=== PATIENT | male | born 1945 | race Caucasian/White ===

== ENCOUNTER 2018-03-23 15:23 | Emergency (ER) | payer MEDICARE, MEDICAID, SELFPAY ==
[2018-03-23 15:25] VITALS: BP 104/50; PULSE 61; RESP 17; TEMP 37; O2SAT 97; BMI 29.7
--- NOTE | 2018-03-23 16:06 | MRI_ITS ---
STUDY: MRI CERVICAL SPINE WITHOUT CONTRAST REASON FOR EXAM: Male, 73 years old. Neck pain TECHNIQUE: Standardized fat and water weighted pulse sequences were obtained in the sagittal and axial planes. COMPARISON: None FINDINGS: Normal foramen magnum and brainstem-cervical cord junction. Normal craniovertebral junction. Normal anterior atlantoaxial articulation. Normal odontoid process. Decreased cervical lordosis. Normal vertebral bodies and posterior osseous elements. C2-3: Normal endplates. Normal disc height, signal and morphology. Normal central canal and intervertebral neural foramina. C3-4: Normal endplates. Normal disc height, signal and morphology. Normal central canal and intervertebral neural foramina. C4-5: Narrowed disc space and mild endplate spurring. Minor bulging disc osteophyte complex. Mild narrowing the central canal. Moderate bilateral neuroforaminal stenosis secondary to bony hypertrophy C5-6: Narrowed disc space and endplate spurring. Minor bulging disc osteophyte complex. Normal central canal. Moderate left neuroforaminal stenosis and more severe narrowing on the right.. C6-7: Narrowed disc space and endplate spurring. Tiny left paracentral disc protrusion. Small left foraminal disc/osteophyte protrusion.. Normal central canal. Severe left neural foraminal stenosis due to disc and bony hypertrophy C7-T1: Normal endplates. Normal disc height, signal and morphology. Normal central canal and intervertebral neural foramina. Normal cervical cord. Normal visualized soft tissue structures. MRI/Spine Cervical (Routine) IMPRESSION: No evidence for acute fracture or subluxation. Moderate spondylosis and bilateral stenosis at C4-5, C5-6 and C6-7 secondary to disc disease and bony hypertrophy. Electronically Signed: Delon Greer MD at 20:35 EDT , Service support ,
[2018-03-23] MEDS: Morphine 4 MG/ML Syringe IV ×3 (16:36→23:52)
[2018-03-23] MEDS: Ondansetron 4 MG/2 ML Vial IV (16:36)
--- NOTE | 2018-03-23 16:41 | ED.VISSUMM ---
- ER Visit Summary Date of Service: 03/23/18 Chief Complaint: Back pain History of Present Illness: The patient is a [address] Thomas and established with Dr. Cisneros today. He reports that he was [facility] with [facility] They do not know the source of his cancer. He saw Dr. Guzman for the first time today. He had blood work drawn and the CAT scan was reviewed. The patient was sent here for MRI and ultrasound-guided biopsy. Patient reports that his back pain has been gradually increasing over the past year. To constant aching pain that is sharp with standing up or walking. It is 10 out of 10 at worst and 2 out of 10 currently after Percocet. He denies any numbness, tingling, or weakness. He does report that it radiates to both legs at times and occasionally just to the anterior right thigh. He denies any fecal incontinence. He does report that he has to bear down to urinate. No groin numbness. Physical Examination: Vitals: Stable. Afebrile. General: A&O x 3. NAD. Cardiovascular exam: Regular rate and rhythm, no murmur, rub or gallop. Respiratory exam: Clear to auscultation bilaterally. No wheezes or stridor. Abdominal exam: Soft, nontender, nondistended, normal bowel sounds. No peritoneal signs. Back: No vertebral tenderness. Negative straight leg bilaterally. 5/5 DF, PF, EHL bilaterally. Normal sensation to light touch throughout. Extremity: No clubbing, cyanosis, or edema. Test Results: CBC is remarkable for segment neutrophils of 82 and lymphs lites of 11. Chem-7 is remarkable for a BUN of 33. Clinical Impression(s) from Imaging Studies Cervical Spine MRI 03/23/18 16:06 IMPRESSION: No evidence for acute fracture or subluxation. Moderate spondylosis and bilateral stenosis at C4-5, C5-6 and C6-7 secondary to disc disease and bony hypertrophy. Electronically Signed: Delon Greer MD at 20:35 EDT , Service support , ADDENDUM: 03/23/182051 Lumbar Spine MRI 03/23/18 16:06 IMPRESSION: No evidence for acute fracture. Multilevel spinal stenosis secondary to disc disease and bony hypertrophy exaggerated by shortened pedicles. Diffuse bone metastasis with sclerotic appearance likely due to primary prostate tumor with aortocaval adenopathy and right iliac adenopathy Electronically Signed: Delon Greer MD at 20:53 EDT , Service support , Thoracic Spine MRI 03/23/18 16:06 IMPRESSION: Scoliosis and degenerative changes.. No evidence for acute fracture Mottled appearance to bone marrow of the dorsal spine and sternum of indeterminate etiology although metastatic disease may be considered. Limited repeat scan with contrast would be helpful for further evaluation if indicated Electronically Signed: Delon Greer MD at 20:44 EDT , Service support , Emergency Department Course and Treatment: Patient was given a dose of morphine and Zofran IV. He was given oxycodone p.o. Treatment Plan: The patient was discussed with Dr. Enamorado. He will be discharged with instructions to follow-up with Dr. Cisneros tomorrow to start hormone therapy. He is given prescription for a fentanyl patch. Instructed to use oxycodone for breakthrough pain. Return to the emergency department for any worsening symptoms. Disposition: To home in improved and stable condition. Impression: 1. 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 This note was generated with [employer] dictation software. It may contain incorrect words, spelling, and punctuation that were not noted in review of the chart prior to signing ED Disposition - Plan for ED Patient: Disposition: Home or Assisted Living Chief Complaint: Weakness Instructions: What Is Prostate Cancer? Prescriptions: fentaNYL patch [Duragesic patch] 25 mcg TRANSDERM. Q72H #3 patch Referrals: Brooke Cisneros MD [STAFF PHYSICIAN] - 1 Day for another exam
--- NOTE | 2018-03-23 16:44 | ED.DCSUM_ITS ---
- ER Visit Summary Date of Service: 03/23/18 Chief Complaint: Back pain History of Present Illness: The patient is a [address] Thomas and established with Dr. Cisneros today. He reports that [facility] do not know the source of his cancer. He saw Dr. Guzman for the first time today. He had blood work drawn and the CAT scan was reviewed. The patient was sent here for MRI and ultrasound-guided biopsy. Patient reports that his back pain has been gradually increasing over the past year. To constant aching pain that is sharp with standing up or walking. It is 10 out of 10 at worst and 2 out of 10 currently after Percocet. He denies any numbness, tingling, or weakness. He does report that it radiates to both legs at times and occasionally just to the anterior right thigh. He denies any fecal incontinence. He does report that he has to bear down to urinate. No groin numbness. Physical Examination: Vitals: Stable. Afebrile. General: A&O x 3. NAD. Cardiovascular exam: Regular rate and rhythm, no murmur, rub or gallop. Respiratory exam: Clear to auscultation bilaterally. No wheezes or stridor. Abdominal exam: Soft, nontender, nondistended, normal bowel sounds. No peritoneal signs. Back: No vertebral tenderness. Negative straight leg bilaterally. 5/5 DF, PF, EHL bilaterally. Normal sensation to light touch throughout. Extremity: No clubbing, cyanosis, or edema. Test Results: CBC is remarkable for segment neutrophils of 82 and lymphs lites of 11. Chem-7 is remarkable for a BUN of 33. Clinical Impression(s) from Imaging Studies Cervical Spine MRI 03/23/18 16:06 IMPRESSION: No evidence for acute fracture or subluxation. Moderate spondylosis and bilateral stenosis at C4-5, C5-6 and C6-7 secondary to disc disease and bony hypertrophy. Electronically Signed: Delon Greer MD at 20:35 EDT , Service support , ADDENDUM: 03/23/182051 Lumbar Spine MRI 03/23/18 16:06 IMPRESSION: No evidence for acute fracture. Multilevel spinal stenosis secondary to disc disease and bony hypertrophy exaggerated by shortened pedicles. Diffuse bone metastasis with sclerotic appearance likely due to primary prostate tumor with aortocaval adenopathy and right iliac adenopathy Electronically Signed: Delon Greer MD at 20:53 EDT , Service support , Thoracic Spine MRI 03/23/18 16:06 IMPRESSION: Scoliosis and degenerative changes.. No evidence for acute fracture Mottled appearance to bone marrow of the dorsal spine and sternum of indeterminate etiology although metastatic disease may be considered. Limited repeat scan with contrast would be helpful for further evaluation if indicated Electronically Signed: Delon Greer MD at 20:44 EDT , Service support , Emergency Department Course and Treatment: Patient was given a dose of morphine and Zofran IV. He was given oxycodone p.o. Treatment Plan: The patient was discussed with Dr. Enamorado. He will be discharged with instructions to follow-up with Dr. Cisneros tomorrow to start hormone therapy. He is given prescription for a fentanyl patch. Instructed to use oxycodone for breakthrough pain. Return to the emergency department for any worsening symptoms. Disposition: To home in improved and stable condition. Impression: 1. 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 This note was generated with [employer] dictation software. It may contain incorrect words, spelling, and punctuation that were not noted in review of the chart prior to signing ED Disposition - Plan for ED Patient: Disposition: Home or Assisted Living Chief Complaint: Weakness Instructions: What Is Prostate Cancer? Prescriptions: fentaNYL patch [Duragesic patch] 25 mcg TRANSDERM. Q72H #3 patch Referrals: Brooke Cisneros MD [STAFF PHYSICIAN] - 1 Day for another exam
[2018-03-23 16:57] LABS: Anion Gap 7 (5-15); BUN 33 mg/dL (7-18); BUN/Creat Ratio 25.8 RATIO (10-20); Calcium,Total 9.2 mg/dL (8.5-10.1); Chloride 103 mmol/L (98-107); Creatinine, Serum 1.28 mg/dL (0.70-1.30); EST Glomerular Filtration Rate 58 mL/min (>60); Est Glom Filt Rate - Afr Amer 71 mL/min (>60); Estimated Creatinine Clearance 53.93 ml/min; Glucose 86 mg/dL (74-106); Potassium 3.9 mmol/L (3.5-5.1); Sodium Level 140 mmol/L (136-145)
[2018-03-23 16:59] LABS: Absolute Lymphocyte Count 1.05 X10^3/ul (0.83-4.51); Absolute Neutrophil Count 7.7 X10^3/uL (2.0-7.7); Basophil# 0.01 X10^3/uL; Basophil% 0.1 % (0-1); Eosinophil# 0.06 X10^3/uL; Eosinophils% 0.6 % (0-5); Hematocrit 42.5 % (40-54); Lymphocyte # 1.05 X10^3/ul (4.0); Lymphocyte % 11.1 % (19-41); Mean Corp Hgb Conc 30.6 g/gl (32-36); Mean Corpuscular Hgb 25.6 pg (27.0-32.0); Mean Corpuscular Volume 83.8 fL (80-94); Mean Platelet Vol. 10.1 fl (6.2-12.0); Monocyte# 0.56 X10^3/uL; Monocyte% 5.9 % (0-10); Neutrophil % 81.9 % (47-70); Platelet Count 173 K/mm3 (150-450); RBC Distribution Width CV 14.6 % (11.6-14.6); RBC Distribution Width SD 44.7 fl (35.1-43.9); Red Blood Count 5.07 M/mm3 (4.6-6.2); White Blood Count 9.4 K/mm3 (4.4-11.0)
[2018-03-23 17:07] LABS: POSITIVE COUNT NO; POSITIVE DIFFERENTIAL NO; POSITIVE MORPHOLOGY NO
[2018-03-23 17:24] VITALS: BP 120/81; PULSE 72
[2018-03-23] MEDS: oxyCODONE 5 MG Tablet 10 MG PO (17:31)
[2018-03-23 20:56] LABS: Red Blood Cells-Urine 0 SEEN /hpf (0-5)
[2018-03-23 21:01] LABS: Color, Urine Yellow (Yellow); Glucose, Dipstick Normal (Normal); Ketone-Dipstick 15 mg/dl (Negative); Leukocyte Esterase-Dipstick 25 /ul (Negative); Nitrite-Dipstick Negative (Negative); Occult Blood-Urine Negative /ul (Negative); Protein-Dipstick 15 mg/dl (Negative); Specific Gravity, Urine 1.025 (1.002-1.030); Urine Bilirubin Dipstick Negative (Negative); Urine Clarity Clear (Clear); Urine Urobilinogen 1 mg/dl (Normal)
[2018-03-23 21:10] LABS: Bacteria RARE /hpf (None Seen); Mucous, Urine 2+ /hpf (<or=2+); Squamous Epithelial Cells - UA 0-5 SEEN /hpf (0-5); White Blood Cells 0-5 SEEN /hpf (0-5)
[2018-03-23 21:14] VITALS: BP 106/64; PULSE 72; RESP 20; O2SAT 97
[2018-03-24 00:31] VITALS: BP 112/74; PULSE 81; RESP 20; O2SAT 97
--- NOTE | 2018-03-24 00:32 | ED.RN ---
THIS NURSE REVIEWED D/C INSTRUCTIONS WITH PT AND FAMILY. BOTH VERBALIZED UNDERSTANDING OF INSTRUCTIONS. IV D/C. IV CATHETER INTACT. PT TOLERATED WELL. PT DENIES FURTHER NEEDS OR QUESTIONS AT THIS TIME. PT ASSISTED TO VEHICLE VIA PT PERSONAL W/C.
== END 2018-03-24 00:33 | disposition home or self-care (01) ==
PROVIDERS: Emergency Provider Emergency Medicine; Family Provider Family Medicine; PCP Family Medicine
DX: C61 Malignant neoplasm of prostate (principal); C79.51 Secondary malignant neoplasm of bone; R11.2 Nausea with vomiting, unspecified; I48.91 Unspecified atrial fibrillation; I10 Essential (primary) hypertension; Z79.899 Other long term (current) drug therapy
CPT/HCPCS: 72141; 72146; 72148; 80048; 81001; 84153; 85025; 96361; 96374; 96375; 96376; 99285; J7030; J7040; A4216; J2405